=== PATIENT | male | born 1975 | race Caucasian/White ===

== ENCOUNTER → 2018-03-11 11:31 | Outpatient (CLI) | payer OTHER, SELFPAY | PROVIDERS: PCP Family Medicine; Visit Provider Family Medicine | DX: J40 Bronchitis, not specified as acute or chronic (principal); J11.1 Influenza due to unidentified influenza virus with other respiratory manifestations | CPT/HCPCS: 87400 ==

== ENCOUNTER → 2019-03-03 12:58 | Outpatient (CLI) | payer OTHER, SELFPAY ==
--- NOTE | 2019-03-03 | DI.RAD.S_ITS ---
PROCEDURE: XR CHEST 2V INDICATIONS: COUGH TECHNIQUE: 2 views of the chest were acquired. COMPARISON: [facility], , CHEST 1 VIEW, 10/18/2011, 20:01. FINDINGS: Surgical changes and devices: None. Lungs and pleura: Lungs are clear. No pleural effusions or pneumothorax. Mediastinum: Mediastinal contours are normal. Heart size is normal. Bones and chest wall: No suspicious bony abnormalities. Soft tissues appear unremarkable. IMPRESSION: No acute pulmonary process. Dictated by: Emily Patterson M.D. on 03/03/2019 at 16:16 Approved by: Emily Patterson M.D. on 03/03/2019 at 16:16
== END ==
PROVIDERS: PCP Family Medicine; Visit Provider Family Medicine
DX: R05 Cough (principal)
CPT/HCPCS: 71046

== ENCOUNTER → 2019-10-26 14:00 | Outpatient (CLI) | payer OTHER, SELFPAY | PROVIDERS: PCP Family Medicine; Referring Provider Family Medicine; Visit Provider Family Medicine | DX: L08.9 Local infection of the skin and subcutaneous tissue, unspecified (principal) | CPT/HCPCS: 87070; 87075; 87077; 87205 ==

== ENCOUNTER → 2020-01-05 13:34 | Outpatient (ROUT) | payer OTHER, SELFPAY ==
[2020-01-05 14:33] LABS: COVID19 -Nasal RAPID Negative (Negative)
== END ==
PROVIDERS: PCP Family Medicine; Visit Provider Family Medicine
DX: Z11.59 Encounter for screening for other viral diseases (principal)
CPT/HCPCS: 87635

== ENCOUNTER → 2020-06-09 13:11 | Outpatient (ROUT) | payer OTHER, SELFPAY ==
[2020-06-09 13:42] LABS: COVID19 -Nasal RAPID Negative (Negative)
== END ==
PROVIDERS: PCP Family Medicine; Visit Provider Family Medicine
DX: Z20.822 Contact with and (suspected) exposure to COVID-19 (principal)
CPT/HCPCS: 87635

== ENCOUNTER → 2021-04-11 16:50 | Outpatient (CLI) | payer OTHER, SELFPAY ==
--- NOTE | 2021-04-11 | DI.RAD.S_ITS ---
PROCEDURE: XR CHEST 2V INDICATIONS: Shortness of breath TECHNIQUE: 2 views of the chest were acquired. COMPARISON: [facility], CR, XR CHEST 2V, 03/03/2019, 12:59. FINDINGS: Surgical changes and devices: None. Lungs and pleura: Lungs are clear. No pleural effusions or pneumothorax. Mediastinum: Mediastinal contours are normal. Heart size is normal. Bones and chest wall: No suspicious bony abnormalities. Soft tissues appear unremarkable. IMPRESSION: No acute cardiopulmonary disease. Dictated by: Kavon Christiansen [facility] Interpreted: Emily Patterson MD on 04/11/2021 at 17:06 Transcribed by: [email or web address] on 04/11/2021 at 17:07 Approved by: Emily Patterson M.D. on 04/11/2021 at 20:13
== END ==
PROVIDERS: PCP Family Medicine; Referring Provider Family Medicine; Visit Provider Family Medicine
DX: R06.02 Shortness of breath (principal)
CPT/HCPCS: 71046

== ENCOUNTER → 2022-01-11 16:14 | Outpatient (CLI) | payer OTHER, SELFPAY ==
--- NOTE | 2022-01-11 | DI.RAD.S_ITS ---
PROCEDURE: XR CHEST 2V INDICATIONS: R05.1 R06.2 TECHNIQUE: 2 views of the chest were acquired. COMPARISON: [facility], CR, XR CHEST 2V, 04/11/2021, 16:44. FINDINGS: Surgical changes and devices: None. Lungs and pleura: Lungs are clear. No pleural effusions or pneumothorax. Mediastinum: Mediastinal contours are normal. Heart size is normal. Bones and chest wall: No suspicious bony abnormalities. Soft tissues appear unremarkable. IMPRESSION: No acute cardiopulmonary disease. Dictated by: Kavon Christiansen [facility] Interpreted: Emily Patterson MD on 01/11/2022 at 16:29 Transcribed by: YAMILKA on 01/11/2022 at 16:29 Approved by: Mitchell Magallanes M.D. on 01/15/2022 at 12:25
== END ==
PROVIDERS: PCP Family Medicine; Referring Provider Registered Nurse; Visit Provider Registered Nurse
DX: R05.1 Acute cough (principal); R06.2 Wheezing
CPT/HCPCS: 71046

== ENCOUNTER → 2023-01-23 11:32 | Outpatient (CLI) | payer OTHER, SELFPAY | PROVIDERS: PCP Family Medicine; Referring Provider Family Medicine; Visit Provider Family Medicine | DX: N41.0 Acute prostatitis (principal) | CPT/HCPCS: 87086 ==

== ENCOUNTER → 2023-02-26 16:31 | Outpatient (ROUT) | payer OTHER, SELFPAY ==
[2023-02-26 16:38] LABS: Add Manual Diff / Slide Review NO; Basophils Absolute Auto 100 /uL (0-100); Eosinophils Absolute Auto 200 /uL (0-450); Eosinophils Percent Auto 1.5 % (2-4); Hematocrit 41.1 % (41-53); Hemoglobin 13.7 g/dL (13.5-17.5); Lymphocytes Absolute Auto 3400 /uL (1100-4500); Lymphocytes Percent Auto 30.6 % (25-40); Mean Corpuscular HGB Conc 33.3 % (30-36); Mean Corpuscular Hemoglobin 30.6 PG (26-34); Mean Corpuscular Volume 91.8 fL (80-100); Monocytes Absolute Auto 900 /uL (0-900); Monocytes Percent Auto 8.3 % (3-14); Neutrophils Absolute Auto 6400 /uL (1500-7000); Neutrophils Percent Auto 58.6 % (50-75); Platelet Count 390 X10^3/uL (150-400); Red Blood Cell Count 4.48 X10^6/uL (4.5-5.9); Red Cell Distribution Width 13.9 % (11.6-14.8)
[2023-02-26 16:55] LABS: Alanine Aminotransferase 23 IU/L (<50); Albumin 4.4 g/dL (3.5-5.0); Albumin Globulin Ratio 1.4 (1.0-2.8); Alkaline Phosphatase 61 U/L (38-126); Aspartate Aminotransferase 32 IU/L (17-59); BUN Creatinine Ratio 20.6 (6-22); Bilirubin Total 0.5 mg/dL (0.2-1.3); Blood Urea Nitrogen 13 mg/dL (9-20); Calcium 9.7 mg/dL (8.4-10.2); Carbon Dioxide 29 mmol/L (22-32); Chloride 100 mmol/L (98-107); Estimated Glomerular Filt Rate > 60 mL/min (>60); Globulin 3.2 g/dL (1.7-4.1); Glucose 98 mg/dL (70-100); HEMOLYSIS < 15 (0-50); Potassium 5.1 mmol/L (3.4-5.1); Total Protein 7.6 g/dL (6.3-8.2)
[2023-02-26 17:04] LABS: Sodium 135 mmol/L (137-145)
[2023-02-26 17:25] LABS: Prostate Specific Antigen 1.57 ng/mL (0.10-4.00)
== END ==
PROVIDERS: PCP Family Medicine; Visit Provider Family Medicine
DX: Z00.00 Encounter for general adult medical examination without abnormal findings (principal); R39.15 Urgency of urination
CPT/HCPCS: 80053; 84153; 85025

== ENCOUNTER → 2023-08-19 16:47 | Outpatient (CLI) | payer OTHER, SELFPAY ==
--- NOTE | 2023-08-19 16:50 | DI.RAD.S_ITS ---
PROCEDURE: XR LUMBAR SPINE 2-3V INDICATIONS: SCIATICA TECHNIQUE: 3 views of the lumbar spine were acquired. COMPARISON: None. FINDINGS: Bones: 5 [id number] vertebrae are present. There is normal bony alignment. No vertebral body compression fractures. No suspicious bony lesions. Mild disc space narrowing at L4-5 and L5-S1 with moderate foraminal narrowing most prominent L5-S1. Soft tissues: Overlying bowel gas pattern is normal. No suspicious soft tissue calcifications. IMPRESSION: Disc and foraminal narrowing most prominent at L4-5, L5-S1. Dictated by: Emily Patterson M.D. on 08/20/2023 at 12:41 Approved by: Emily Patterson M.D. on 08/20/2023 at 12:41
== END ==
PROVIDERS: PCP Family Medicine; Referring Provider Family Medicine; Visit Provider Family Medicine
DX: M54.30 Sciatica, unspecified side (principal); M48.061 Spinal stenosis, lumbar region without neurogenic claudication; M48.07 Spinal stenosis, lumbosacral region
CPT/HCPCS: 72100

== ENCOUNTER → 2023-09-24 15:28 | Outpatient (CLI) | payer OTHER, SELFPAY ==
--- NOTE | 2023-09-24 15:34 | DI.RAD.S_ITS ---
PROCEDURE: XR SHOULDER LT MIN 2V INDICATIONS: SHOULDER PAIN TECHNIQUE: 3 views of the shoulder were acquired. COMPARISON: None. FINDINGS: Bones: No fractures or dislocations. There is narrowing of the AC joint with osteophyte formation. Glenohumeral joint appears intact. No suspicious bony lesions. Visualized ribs appear intact. Soft tissues: No suspicious soft tissue calcifications. IMPRESSION: Arthritic changes in the AC joint. Dictated by: Carl Garcia M.D. on 09/26/2023 at 12:53 Approved by: Carl Garcia M.D. on 09/26/2023 at 12:55
--- NOTE | 2023-09-24 15:34 | DI.RAD.S_ITS ---
PROCEDURE: XR SHOULDER RT MIN 2V INDICATIONS: SHOULDER PAIN TECHNIQUE: 3 views of the shoulder were acquired. COMPARISON: None. FINDINGS: Bones: No fractures or dislocations. 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 No suspicious bony lesions. Visualized ribs appear intact. Soft tissues: No suspicious soft tissue calcifications. IMPRESSION: Arthritic changes in the AC joint. Dictated by: Carl Garcia M.D. on 09/26/2023 at 12:55 Approved by: Carl Garcia M.D. on 09/26/2023 at 12:57
== END ==
PROVIDERS: PCP Family Medicine; Referring Provider Family Medicine; Visit Provider Family Medicine
DX: M19.011 Primary osteoarthritis, right shoulder (principal); M25.511 Pain in right shoulder; M25.512 Pain in left shoulder
CPT/HCPCS: 73030

== ENCOUNTER → 2023-11-27 18:03 | Outpatient (ROUT) | payer OTHER, SELFPAY ==
[2023-11-27 18:59] LABS: Prolactin 5.9 ng/mL (3.7-17.9)
[2023-11-27 19:02] LABS: Free T3, Triiodothyronine Free 3.97 pg/mL (2.77-5.27); Luteinizing Hormone 2.55 mIU/mL
[2023-11-27 19:12] LABS: Prostate Specific Antigen 1.83 ng/mL (0.10-4.00)
[2023-11-27 19:15] LABS: Testosterone 423 ng/dL (132-813)
[2023-11-27 19:16] LABS: Thyroid Stimulating Hormone 0.674 uIU/mL (0.47-4.68)
[2023-11-29 03:36] LABS: Sex Hormone Binding Globulin 54.4 nmol/L (16.5-55.9)
== END ==
PROVIDERS: PCP Family Medicine; Visit Provider Family Medicine
DX: R53.83 Other fatigue (principal); R68.82 Decreased libido; G47.00 Insomnia, unspecified; F32.A Depression, unspecified; F41.9 Anxiety disorder, unspecified; G31.84 Mild cognitive impairment of uncertain or unknown etiology
CPT/HCPCS: 83002; 84146; 84153; 84270; 84403; 84436; 84443; 84481; 86376

== ENCOUNTER → 2023-12-06 16:32 | Outpatient (CLI) | payer OTHER, SELFPAY ==
--- NOTE | 2023-12-06 16:34 | DI.RAD.S_ITS ---
PROCEDURE: XR CERVICAL SPINE 2V OR 3V INDICATIONS: NECK PAIN TECHNIQUE: 4 view(s) of the cervical spine were acquired. COMPARISON: None. FINDINGS: Bones: No fractures or dislocations to the T1 level. The lateral masses of C1 appear intact on the odontoid view. No suspicious bony lesions. Straightening of the cervical lordosis. Unfused arch of C1, an anatomic variant. Soft tissues: No prevertebral soft tissue swelling. IMPRESSION: No displaced fracture or traumatic subluxation. Dictated by: Perez Tucker M.D. on 12/09/2023 at 13:04 Approved by: Perez Tucker M.D. on 12/09/2023 at 13:05
== END ==
PROVIDERS: PCP Family Medicine; Referring Provider Family Medicine; Visit Provider Family Medicine
DX: M54.2 Cervicalgia (principal); M25.511 Pain in right shoulder; M25.512 Pain in left shoulder
CPT/HCPCS: 72040

== ENCOUNTER → 2024-04-08 12:19 | Outpatient (ROUT) | payer OTHER, SELFPAY | PROVIDERS: PCP Family Medicine; Visit Provider Family Medicine | DX: E34.9 Endocrine disorder, unspecified (principal) | CPT/HCPCS: 84402 ==

== ENCOUNTER → 2024-05-12 13:04 | Outpatient (ROUT) | payer OTHER, SELFPAY ==
[2024-05-14 12:09] LABS: Testosterone, Free 6.9 pg/mL (6.8-21.5)
== END ==
PROVIDERS: PCP Family Medicine; Visit Provider Family Medicine
DX: E34.9 Endocrine disorder, unspecified (principal)
CPT/HCPCS: 84402

== ENCOUNTER → 2024-06-25 15:17 | Outpatient (ROUT) | payer OTHER, SELFPAY ==
[2024-07-01 15:09] LABS: Testosterone, Free 4.8 pg/mL (6.8-21.5)
== END ==
LOC: LAB 15:17
PROVIDERS: PCP Family Medicine; Visit Provider Family Medicine
DX: E34.9 Endocrine disorder, unspecified (principal)
CPT/HCPCS: 84402

== ENCOUNTER → 2024-07-16 14:56 | Outpatient (ROUT) | payer OTHER, SELFPAY | LOC: LAB 14:58 | PROVIDERS: PCP Family Medicine; Visit Provider Family Medicine | DX: E34.9 Endocrine disorder, unspecified (principal) | CPT/HCPCS: 84402 ==